=== PATIENT | female | born 1945 | race Caucasian/White ===

== ENCOUNTER 2018-03-17 01:34 | Emergency (ER) | payer OTHER ==
[~2018-03-17] VITALS: Ht 160 cm; Wt 67.6 kg
[2018-03-17] MEDS ORDERED: KAPSPARGO SPRIN50 MG PO (01:43)
[2018-03-17] MEDS ORDERED: ZESTRIL40 MG PO (01:43)
[2018-03-17] MEDS ORDERED: GLUCOPHAGE1000 MG PO (01:43)
[2018-03-17 02:56] VITALS: BP 147/68
== END 2018-03-17 03:53 | disposition home or self-care (01) ==
LOC: M.ERS 01:34
DX: T78.3XXA Angioneurotic edema, initial encounter (principal); I10 Essential (primary) hypertension; E78.00 Pure hypercholesterolemia, unspecified; E11.9 Type 2 diabetes mellitus without complications

== ENCOUNTER 2018-12-04 23:45 | Emergency (ER) | payer OTHER ==
[~2018-12-04] VITALS: Ht 160 cm; Wt 63.5 kg
[~2018-12-04 23:45] MED LIST: GLUCOPHAGE1000 MG PO; KAPSPARGO SPRIN50 MG PO; ZESTRIL40 MG PO
[2018-12-04] MEDS ORDERED: CRESTOR40 MG PO (23:52)
[2018-12-04] MEDS ORDERED: AMARYL4 MG PO (23:52)
[2018-12-04] MEDS ORDERED: CARDIZEM60 MG PO (23:52)
[2018-12-05] MEDS ORDERED: PREDNISONE 20 M20 M1 PO (02:20)
[2018-12-05 02:33] VITALS: BP 146/48
== END 2018-12-05 02:33 | disposition home or self-care (01) ==
LOC: M.ERS 23:45
DX: T78.3XXA Angioneurotic edema, initial encounter (principal); I10 Essential (primary) hypertension; E78.00 Pure hypercholesterolemia, unspecified; E11.9 Type 2 diabetes mellitus without complications; F17.200 Nicotine dependence, unspecified, uncomplicated